=== PATIENT | male | born 1960 | race Caucasian/White ===

== ENCOUNTER 2023-08-22 12:39 | Outpatient (AMB) | payer OTHER, SELFPAY ==
--- NOTE | 2023-08-22 12:58 | MHC.OFFVIS ---
Vital Signs 08/22/23 13:02 Height 5 ft 8 in Weight 188 lb BMI 28.6 BP 143/79 H Blood Pressure Location Rt brachial Position Sitting Pulse 80 Intake Visit Reasons: Migrated hernia mesh Intake Note: Patient referred by PCP @ [facility] Dr. Glass for ? migrated hernia mesh. Patient c/o: RLQ pain. Patient felt a rip on rt groin on 1yr ago. Of note patient previously seen by Dr. Cantu. 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 This has been on and off for the last years time. Patient had an open right inguinal hernia repair in 2012. He is unsure if the hernia surgeries related to his current perineal symptoms. Patient will not to have an ultrasound of the groin area the which demonstrated no hernia. Patient is otherwise tolerating a diet, having regular bowel habits. His activity levels have been un- limited by this. Chart was reviewed and patient evaluated [facility] Medical History (Updated 08/22/23 @ 13:05 by AUSTIN Rosario) HTN (hypertension) Social History (Updated 08/22/23 @ 13:05 by AUSTIN Rosario) Tobacco use type: Cigarette Cigarettes Per Day: 20 Physical Exam Vital Signs: Last Vital Signs Pulse 80 08/22/23 13:02 BP 143/79 H 08/22/23 13:02 BMI result Body Mass Index 28.6 GI Other: Patient was examined both supine and standing with Valsalva. Left groin negative. Right groin old scar well healed. Negative for hernia. Genitalia within normal limits. Peritoneum demonstrates no obvious mass, discharge, adenopathy or any skin changes. Assessment & Plan Assessment & Plan (1) Inguinodynia: Code(s): R10.30 - Lower abdominal pain, unspecified Category: Surgical Plan I reassured the patient that his symptoms are unrelated to his hernia repair from the distant past. No evidence of any acute pathology at this time. Should this process recur and the patient has his ?bulge? he has been instructed to call the office and we will see him immediately. Otherwise we will follow-up p.r.n.. Coding Level of Care Code New Pt Level 4 (74479) Diagnoses Inguinodynia R10.30
[2023-08-22 13:02] VITALS: BP 143/79; PULSE 80; BMI 28.6
== END 2023-08-22 13:30 | disposition home or self-care (01) ==
PROVIDERS: PCP Nurse Practitioner Family; Visit Provider Surgery
DX: R10.30 Lower abdominal pain, unspecified (principal)
CPT/HCPCS: 99203

== ENCOUNTER → 2023-08-22 12:39 | Outpatient (BNVA) | payer OTHER, SELFPAY | PROVIDERS: PCP Nurse Practitioner Family; Visit Provider Surgery | DX: R10.30 Lower abdominal pain, unspecified (principal) | CPT/HCPCS: 99202 ==